=== PATIENT | male | born 1950 | race Caucasian/White ===

== ENCOUNTER → 2017-06-24 | Outpatient (CLI) | payer BC | LOC: BMCIMAGING 08:45 | PROVIDERS: ATTEND Internal Medicine | DX: Z13.6 Encounter for screening for cardiovascular disorders (principal); I70.0 Atherosclerosis of aorta; I10 Essential (primary) hypertension ==

== ENCOUNTER → 2019-05-11 | Outpatient (CLI) | payer BC | LOC: BMCIMAGING 14:53 ==